=== PATIENT | male | born 1985 | race Two or more races ===

== ENCOUNTER 2021-04-03 16:49 | Emergency (ER) | payer OTHER ==
[~2021-04-03] VITALS: Ht 157.5 cm; Wt 59.0 kg
[2021-04-03] MEDS ORDERED: ZITHROMAX1 GM (17:16)
[2021-04-03] MEDS ORDERED: CIPRO500 MG/5 M PO (21:09)
== END 2021-04-03 22:08 | disposition home or self-care (01) ==
LOC: ER 16:49
DX: R30.0 Dysuria (principal)